=== PATIENT | female | born 1975 | race African-American/Black ===

== ENCOUNTER → 2016-10-06 | Outpatient (CLI) | payer OTHER ==
--- NOTE | ~2016-10-06 | US98 ---
[facility] A Service of [facility] & [facility] RADIOLOGY TEXT RESULTS PATIENT: HAILEE VENTURA LOCATION: [facility] : 71 UNIT #: [id number] AGE: [address]: ALISA TAYLOR APRN SEX: F ORDER DR: [id number] [address] [address] [id number] O MR#: [id number] Acc #: [id number] NAME: HAILEE VENTURA : 1975 SEX: F STUDY DATE/TIME: 10/06/2016 14:05 UNIT: [facility] ROOM: STUDY DESCRIPTION: US Pelvic Non-OB Complete Attending Physician: Alisa Taylor Aprn Referring Physician: Alisa Taylor Aprn Ordering Physician: Alisa Taylor Aprn Primary Care Physician: Kyaw Ricks M.D. MEDICAL IMAGING REPORT This report is preliminary unless electronic signature is present. EXAM Pelvic ultrasound INDICATIONS Heavy periods and pain. Patient reports last normal menstrual period was 09/15/2016. She has been noted to have a prominent uterus on prior CT from July of 2007. TECHNIQUE Nava-scale color Doppler and spectral Doppler waveform analysis was performed through the patient's pelvis both transabdominally and transvaginally. FINDINGS Patient's uterus measures 9.5 x 5.4 x 4.8 cm which is actually smaller than on prior ultrasound from 2007, it is homogeneous in echotexture and the endometrium measures within normal size limits at 8 mm. Both ovaries are identified and normal color-Doppler flow is seen within both ovaries. No free fluid is noted. IMPRESSION Normal appearing uterus measuring up to 9.5 x 5.4 x 4.8 cm which is actually smaller than the ultrasound from 2007. It is homogeneous in echotexture. No obvious fibroids or adenomyosis is seen. Dictated by... Ileana Dial M.D. THIS IS AN ELECTRONICALLY VERIFIED REPORT Ileana Dial M.D. at 10/08/2016 4:39 PM AFF/rnr [facility] A Service of [facility] & [facility] RADIOLOGY TEXT RESULTS PATIENT: HAILEE VENTURA LOCATION: [facility] #: [id number] : [birth year] UNIT #: [id number] AGE: [address]: ALISA TAYLOR APRN SEX: F ORDER DR: TD: 10/07/2016 16:39 JOB #: [id number] MEDICAL IMAGING REPORT Page 1 of 1
== END | disposition home or self-care (01) ==
LOC: SGUS 13:38
DX: N85.2 Hypertrophy of uterus (principal)
CPT/HCPCS: 76830; 76856

== ENCOUNTER 2017-01-08 17:48 | Emergency (ER) | payer OTHER ==
--- NOTE | ~2017-01-08 | CT71 ---
[facility] A Service of [facility] & [facility] RADIOLOGY TEXT RESULTS PATIENT: HAILEE VENTURA LOCATION: [facility] : 71 UNIT #: [id number] AGE: [address]: Zaki Wasserman SEX: F ORDER DR: [id number] [facility] [address] [place], [place] [address] [id number] MR#: [id number] Acc #: [id number] NAME: HAILEE VENTURA : 1975 SEX: F STUDY DATE/TIME: 01/08/2017 20:54 UNIT: [facility] ROOM: STUDY DESCRIPTION: CT Head Wo Contrast Attending Physician: Zaki Wasserman P.A.-C. Ordering Physician: Zaki Wasserman P.A.-C. Primary Care Physician: Ritu Ricks M.D. MEDICAL IMAGING REPORT This report is preliminary unless electronic signature is present EXAM CT brain without contrast HISTORY Forehead pain and pressure today. Cyst removed from forehead yesterday. This CT exam was performed with one or more of the following radiation dose reduction techniques: automatic exposure control, adjustment of mA and/or kV according to patient size, and iterative reconstruction. FINDINGS CT brain without contrast demonstrates no intracranial hemorrhage, mass or edema. No midline shift or ventricular dilatation or extraaxial fluid collection. IMPRESSION Negative head CT. Dictated by... Timothy Kingsley M.D. THIS IS AN ELECTRONICALLY VERIFIED REPORT Timothy Kingsley M.D. at 01/16/2017 10:36 PM DOMONIQUE/ricci TD: 01/09/2017 05:27 JOB #: [id number] MEDICAL IMAGING REPORT Page 1 of 1 COPY
== END 2017-01-08 22:06 | disposition home or self-care (01) ==
LOC: CED 17:48 → CFTX 17:48
DX: Z48.01 Encounter for change or removal of surgical wound dressing (principal); Z88.1 Allergy status to other antibiotic agents; F17.210 Nicotine dependence, cigarettes, uncomplicated; Z98.890 Other specified postprocedural states
CPT/HCPCS: 70450; 84703; 99284